=== PATIENT | female | born 1995 | race Caucasian/White ===

== ENCOUNTER 2016-12-26 12:32 | Emergency (ER) | payer SELFPAY ==
[2016-12-26 12:39] VITALS: BMI 22.1
--- NOTE | 2016-12-26 13:08 | EDPRACDOC ---
- General Information Stated Complaint: HEADACHE Time Seen by Provider: 12/26/16 12:37 Home Medications: Home Medications Amoxicillin/Clavulanate Potas. [Augmentin] 875 mg PO BID #20 tab 10/09/16 Ibuprofen 600 mg PO TID #20 tablet 10/09/16 Ibuprofen 600 mg PO TID #20 tablet 12/26/16 Ondansetron HCl [Zofran] 4 mg PO Q6H PRN #20 tab 12/26/16 Allergies/Adverse Reactions: Allergies Allergy/AdvReac Type Severity Reaction Status Date / Time Sulfa (Sulfonamide Allergy Rash-Genera Verified 12/16/13 16:48 Antibiotics) lized [Sulfa(Sulfonamide Antibiotics)] - History of Present Illness Onset: 5 DAYS HPI: PT PRESENTS TODAY STATING INTERMITTENT HOT FLASHES WITH CHILLS AND JONES X 5 DAYS. PT STATES THAT HER JONES IS MORE SEVERE WITH STANDING AND THAT SHE MUST SIT DOWN FOR RELIEF. NO PMH/MEDS. DENIES ENT SYMPTOMS, FEVER, CP, SHOB, ABD PAIN, N/V/ D. NO APPARENT DISTRESS. STATES A "SWOLLEN LYMPH NODE" ON HER RIGHT LATERAL NECK. Treated Infection: None Symptoms: Reports: Chills, Fever, Headache, Myalgia ED Past Medical History - History Reviewed Yes Nurses notes reviewed and agree except as marked - Patient Medical History Psychological History: Denies: Depression - Social Medical History Smoking Status: Current some day smoker EDM Review of Systems - Review of Systems ROS Negative Except as Marked: Yes All systems reviewed and were negative except as marked Constitutional: Chills, Fever Eyes: No Symptoms Reported Ears: No Symptoms Reported Throat: No Symptoms Reported Nose: No Symptoms Reported Respiratory: No Symptoms Reported Cardiovascular: No Symptoms Reported Gastrointestinal: No Symptoms Reported Neurological: Headache Musculoskeletal: No Symptoms Reported Integumentary: No Symptoms Reported - Physical Exam Constitutional: Alert (Awake), No apparent distress Oriented to: Time, Person, Place Last recorded Vital Signs: Last Vital Signs Temp 98.5 F 12/26/16 12:37 Pulse 112 12/26/16 12:37 Resp 18 12/26/16 12:37 BP 120/76 12/26/16 12:37 Pulse Ox 97 12/26/16 12:37 Oxygen Pulse Oxygen Saturation 97 O2 Device Room Air Oxygen Flow Rate Fraction of Inspired Oxygen ( FIO2) - HEENT Head: Normal Eye Exam: Normal Oropharynx: Normal Tympanic Membrane: Normal ENT EAC: Normal Nose: No Symptoms Reported Neck: Lymphadenopathy, Midline - Respiratory/Cardiovascular Respiratory: Normal - CTA Cardiovascular: Tachycardia - GI Palpation: Normal Tenderness: Non tender - Musculoskeletal Back: Normal Extremities: Normal - Integumentary Skin: Hot Lymphatics: Normal - Neurologic Cerebellar: Normal Mood Description: Normal Thought: Coherent Perception: Normal - Results 12/26/16 13:04 12/26/16 13:04 - Additional Information NO PAIN WITH ROM OF NECK; NOTED 1 SWOLLEN LYMPH NODE TO RIGHT CERVICAL NECK; NO OTHER PERTINENT PHYSICAL FINDINGS. Decision Time to Discharge: 13:52 - Departure Disposition: Home Condition: Stable Final Diagnosis: Elevated liver enzymes Fever Qualifiers: Fever type: unspecified Qualified Code(s): R50.9 - Fever, unspecified Instructions: Mononucleosis (ED) Education/Counseling Given To: Patient Education/Counseling Given Regarding: Diagnosis, Treatment, Follow Up Referrals: None,No Provider [Primary Care Provider] - One Week Prescriptions: New Ibuprofen 600 mg PO TID #20 tablet Ondansetron HCl [Zofran] 4 mg PO Q6H PRN #20 tab PRN Reason: Nausea/Vomiting No Action Amoxicillin/Clavulanate Potas. [Augmentin] 875 mg PO BID #20 tab Ibuprofen 600 mg PO TID #20 tablet Additional Instructions: REST AND PLENTY OF FLUIDS. DO NOT KISS OR SHARE DRINKS. WE WILL CALL YOU FOR ANY POSITIVE RESULTS. FEEL FREE TO RETURN TO ED SOONER FOR ANY WORSE/ CONCERNING SYMPTOMS.
[2016-12-26 13:13] LABS: MPV 7.5 fL (7.4-10.4)
[2016-12-26 13:22] LABS: BLOOD UREA NITROGEN 9 MG/DL (7-17); CALCIUM 9.2 MG/DL (8.4-10.2); CALCULATED OSMOLALITY 263 MOs/Kg (270-290); CHLORIDE 100 mEq/L (98-107); GLUCOSE 103 mg/dL (70-99); SODIUM LEVEL 137 mEq/L (137-146); TOTAL PROTEIN 7.4 G/DL (6.3-8.2)
[2016-12-26 13:23] LABS: LEUKOCYTES/URINE NEG (NEGATIVE); NITRITE/URINE NEG (NEGATIVE); URINE OCCULT BLOOD 1+ (NEG/TRACE); WBC/URINE 0-2 (0-5)
[2016-12-26 13:39] LABS: FREE T3 3.03 pg/mL (2.77-5.27); FREE T4 1.11 ng/dL (0.78-2.19)
[2016-12-26 13:52] LABS: hTSH 1.68 uIU/mL (0.5-4.67)
--- NOTE | 2016-12-26 13:52 | DIRPT ---
CLINICAL DATA: 29-year-old presenting with 5 day history of fever, headaches, hot flashes and generalized body aches. Chest tightness upon deep inspiration. EXAM: CHEST 2 VIEW COMPARISON: None. FINDINGS: Cardiomediastinal silhouette unremarkable. Lungs clear. Bronchovascular markings normal. Pulmonary vascularity normal. No pneumothorax. No pleural effusions. Visualized bony thorax intact. IMPRESSION: Normal examination. Electronically Signed By: Tee Ordaz M.D. On: 12/26/2016 13:49
[2016-12-26 13:55] LABS: SEG NEUTROPHIL 39 % (45-76)
[2016-12-26 14:02] VITALS: BP 108/74; PULSE 106; TEMP 99.4
[2016-12-27 14:45] LABS: EBV Ab VCA, IgG < 18.0 U/mL (0.0-17.9)
== END 2016-12-26 14:13 | disposition home or self-care (01) ==
LOC: EDMC 12:32
DX: R74.8 Abnormal levels of other serum enzymes (principal); R50.9 Fever, unspecified; Z72.0 Tobacco use
CPT/HCPCS: 36415; 71020; 80053; 81001; 81025; 84439; 84443; 84481; 85007; 85027; 86663; 87804; 87880; 99283